=== PATIENT | male | born 1965 | race Caucasian/White ===

== ENCOUNTER 2019-07-11 19:10 | Emergency (ER) | payer OTHER, SELFPAY ==
[~2019-07-11 19:10] MED LIST: Iopamidol-370 76% 500 ML 1 ML ONE
[2019-07-11 20:16] LABS: #Eosinphils 0.2 thou/uL (0.0-0.7); #Lymphocytes 1.3 thou/uL (1.20-3.40); #Monocytes 0.5 thou/uL (0.11-0.59); #Neutrophils 4.7 thou/uL (1.40-6.50); %Basophils 0.6 % (0.0-1.0); %Eosinophils 3.4 % (0.0-10.0); %Lymphocytes 18.6 % (21.0-51.0); %Monocytes 7.6 % (0.0-10.0); %Neutrophils 69.8 % (42.0-75.0); Hemoglobin 16.1 g/dL (14.0-18.0); Mean Corpuscular HGB CONC 35.3 g/dL (32.0-36.0); Mean Corpuscular Hemoglobin 31.4 pg (27.0-31.0); Mean Corpuscular Volume 89.1 fL (78.0-98.0); Mean Platelet Volume 8.2 fL (7.4-10.4); Platelet Count 190 thou/uL (130-400); RBC Distribution Width 12.5 % (11.5-14.5); Red Blood Cell (RBC) Count 5.13 mill/uL (4.70-6.10); White Blood Cell (WBC) Count 6.7 thou/uL (4.8-10.8)
[2019-07-11 20:37] LABS: ALT (SGPT) 39 U/L (8-55); AST (SGOT) 26 U/L (5-34); Albumin 4.6 g/dL (3.5-5.0); Alkaline Phosphatase 58 U/L (40-110); Anion Gap 13 mmol/L (10-20); BUN (Urea Nitrogen) 9 mg/dL (8.4-25.7); Bilirubin, Total 0.7 mg/dL (0.2-1.2); Calc. Creatinine Clearance 0 mL/min (70-130); Calcium 9.3 mg/dL (7.8-10.44); Carbon Dioxide 28 mmol/L (22-29); Chloride 99 mmol/L (98-107); Estimated GFR-MDRD 73; Globulin 2.5 g/dL (2.4-3.5); Glucose 159 mg/dL (70-105); Lipase 7 U/L (8-78); Potassium 3.9 mmol/L (3.5-5.1); Protein, Total 7.1 g/dL (6.0-8.3); Sodium 136 mmol/L (136-145)
[2019-07-11] MEDS ORDERED: Acetaminophen 500 MG TAB ONE (20:58)
[2019-07-11] MEDS ORDERED: Ondansetron PF 4 MG/2 ML Vial ONE (20:58)
--- NOTE | 2019-07-11 21:11 | CT ---
CT ABDOMEN WITH CONTRAST CT PELVIS WITH CONTRAST: DATE: 07/11/2019 HISTORY: 53-year-old male with left lower quadrant abdominal pain COMPARISON: None TECHNIQUE: IV injection of iodinated contrast media: administered. Oral contrast media:Not administered FINDINGS: There is a fat-containing right inguinal hernia. There is a questionable smaller left-sided fat-conta ining inguinal hernia. No hernia with bowel loop. Atrophic, partially fatty replaced pancreas. No major pathology identified involving abdominal aorta, right kidney, adrenals, spleen, or urinary blad letty. Normal appendix. No small bowel dilation. No convincing evidence of colonic diverticulitis. No small bowel dilation, ascites, pneumoperitoneum, or pleural effusion. Exophytically protruding laterally from the left renal mid pole cortex, there is an approximately 1.5 x 1.5 x 1.5 cm small lesion that has lower density than the adjacent enhancing renal parenchyma, with density of 40 Hounsfield units. No hydronephrosis. IMPRESSION: 1. No acute findings. 2. Small 1.5 cm left renal mass. Possibilities include hemorrhagic renal cyst versus primary renal ne oplasm. Recommend further evaluation with multiphase CT of abdomen with and without contrast (renal mass protocol), on a nonemergent, elective basis.
[2019-07-11] MEDS ORDERED: Lisinopril 10 MG TAB ONE (21:31)
--- NOTE | 2019-07-14 11:29 | EKG ---
Test Reason : EMERGENCY EXAM Blood Pressure : / mmHG Vent. Rate : 064 BPM Atrial Rate : 064 BPM P-R Int : 158 ms QRS Dur : 084 ms QT Int : 402 ms P-R-T Axes : 015 019 032 degrees QTc Int : 414 ms Normal sinus rhythm Normal ECG Confirmed by RITIKA VELIZ ([id number]), offline editor TYREE HUFF ([id number]) on 07/14/2019 11:28:41 AM Referred By: Confirmed By:RITIKA VELIZ
== END 2019-07-11 21:45 | disposition home or self-care (01) ==
LOC: ERS 19:10
DX: S41.151A Open bite of right upper arm, initial encounter (principal); R10.32 Left lower quadrant pain; R11.0 Nausea; E11.9 Type 2 diabetes mellitus without complications; I10 Essential (primary) hypertension; E78.5 Hyperlipidemia, unspecified; Z79.899 Other long term (current) drug therapy; Z79.84 Long term (current) use of oral hypoglycemic drugs; W55.01XA Bitten by cat, initial encounter
CPT/HCPCS: 74177; 80053; 83690; 84484; 85025; 93005; 94760; 96374; J2405; Q9967

== ENCOUNTER 2020-10-13 12:45 | Emergency (ER) | payer SELFPAY ==
[2020-10-13] MEDS ORDERED: Proparacaine 0.5% Opth 15 ML BOT ONE (14:24)
[2020-10-13] MEDS ORDERED: Ketorolac Tromethamine 30 MG/ML VIAL ONE (14:25)
[2020-10-13] MEDS ORDERED: diphenhydrAMINE 50 MG/ML VIAL ONE (14:25)
[2020-10-13] MEDS ORDERED: Metoclopramide HCl 10 MG/2 ML VIAL ONE (14:25)
[2020-10-13 14:30] LABS: Bilirubin Negative (Negative); Blood, Urine Negative (Negative); Clarity Clear (Clear); Glucose, Urine (Dipstick) Normal (Negative); Ketone, Urine Negative (Negative); Leukocyte Negative Leu/uL (Negative); Nitrite Negative (Negative); Protein, Urine (Dipstick) Negative (Neg-Trace); Specific Gravity, Urine 1.004 (1.002-1.036); Urobilinogen Normal mg/dL (Less than 2); pH, Urine 6.5 (5.0-9.0)
[2020-10-13 14:40] LABS: #Eosinphils 0.1 thou/uL (0.0-0.7); #Lymphocytes 1.1 thou/uL (1.20-3.40); #Monocytes 0.5 thou/uL (0.11-0.59); #Neutrophils 4.8 thou/uL (1.40-6.50); %Basophils 0.5 % (0.0-1.0); %Eosinophils 2.2 % (0.0-10.0); %Lymphocytes 16.2 % (21.0-51.0); %Monocytes 7.7 % (0.0-10.0); %Neutrophils 73.4 % (42.0-75.0); Hemoglobin 15.4 g/dL (14.0-18.0); Mean Corpuscular HGB CONC 34.4 g/dL (32.0-36.0); Mean Corpuscular Hemoglobin 31.4 pg (27.0-31.0); Mean Corpuscular Volume 91.2 fL (78.0-98.0); Mean Platelet Volume 7.9 fL (7.4-10.4); Platelet Count 199 thou/uL (130-400); RBC Distribution Width 11.8 % (11.5-14.5); White Blood Cell (WBC) Count 6.6 thou/uL (4.8-10.8)
[2020-10-13 15:05] LABS: ALT (SGPT) 18 U/L (8-55); AST (SGOT) 16 U/L (5-34); Albumin 4.7 g/dL (3.5-5.0); Alkaline Phosphatase 47 U/L (40-110); Anion Gap 12 mmol/L (10-20); BUN (Urea Nitrogen) 10 mg/dL (8.4-25.7); Bilirubin, Total 0.7 mg/dL (0.2-1.2); CRP (Inflammatory) Less than 0.50 mg/dL (= or < 0.5); Calc. Creatinine Clearance 0 mL/min (70-130); Calcium 9.7 mg/dL (7.8-10.44); Carbon Dioxide 29 mmol/L (22-29); Chloride 103 mmol/L (98-107); Globulin 2.5 g/dL (2.4-3.5); Glucose 200 mg/dL (70-105); Magnesium 1.9 mg/dL (1.6-2.6); Potassium 3.9 mmol/L (3.5-5.1); Protein, Total 7.2 g/dL (6.0-8.3); Sodium 140 mmol/L (136-145)
== END 2020-10-13 16:51 | disposition home or self-care (01) ==
LOC: ERS 12:45
DX: I16.0 Hypertensive urgency (principal); E11.9 Type 2 diabetes mellitus without complications; E78.5 Hyperlipidemia, unspecified; Z79.84 Long term (current) use of oral hypoglycemic drugs; Z79.899 Other long term (current) drug therapy
CPT/HCPCS: 70450; 80053; 81003; 83735; 83880; 84484; 85025; 85652; 86140; 93005; 96365; 96366; 96375; J1200; J1885; J2765

== ENCOUNTER 2020-10-16 09:54 | Inpatient (IN) | payer OTHER, SELFPAY ==
[2020-10-16 10:22] LABS: #Basophils 0.1 thou/uL (0.0-0.2); #Eosinphils 0.2 thou/uL (0.0-0.7); #Lymphocytes 1.3 thou/uL (1.20-3.40); #Monocytes 0.5 thou/uL (0.11-0.59); #Neutrophils 4.5 thou/uL (1.40-6.50); %Eosinophils 2.7 % (0.0-10.0); %Lymphocytes 19.6 % (21.0-51.0); %Monocytes 6.8 % (0.0-10.0); %Neutrophils 69.9 % (42.0-75.0); Hemoglobin 16.1 g/dL (14.0-18.0); Mean Corpuscular HGB CONC 33.5 g/dL (32.0-36.0); Mean Corpuscular Hemoglobin 30.6 pg (27.0-31.0); Mean Corpuscular Volume 91.5 fL (78.0-98.0); Mean Platelet Volume 7.7 fL (7.4-10.4); Platelet Count 199 thou/uL (130-400); Red Blood Cell (RBC) Count 5.26 mill/uL (4.70-6.10); White Blood Cell (WBC) Count 6.5 thou/uL (4.8-10.8)
[2020-10-16 10:45] LABS: ALT (SGPT) 19 U/L (8-55); AST (SGOT) 16 U/L (5-34); Albumin 4.8 g/dL (3.5-5.0); Alkaline Phosphatase 51 U/L (40-110); Anion Gap 16 mmol/L (10-20); BUN (Urea Nitrogen) 8 mg/dL (8.4-25.7); Calc. Creatinine Clearance 0 mL/min (70-130); Calcium 9.7 mg/dL (7.8-10.44); Carbon Dioxide 25 mmol/L (22-29); Chloride 101 mmol/L (98-107); Globulin 2.7 g/dL (2.4-3.5); Glucose 197 mg/dL (70-105); Potassium 3.9 mmol/L (3.5-5.1); Protein, Total 7.5 g/dL (6.0-8.3); Sodium 138 mmol/L (136-145)
[2020-10-16] MEDS ORDERED: Ketorolac Tromethamine 30 MG/ML VIAL ONE (11:56)
[2020-10-16] MEDS ORDERED: Metoclopramide HCl 10 MG/2 ML VIAL ONE (11:56)
[2020-10-16] MEDS ORDERED: traMADol HCl 50 MG TAB ONE (13:41)
[2020-10-16] MEDS ORDERED: niCARdipine 20MG In NaCl 20 MG/200 ML BAG ONE ×3 (13:41→19:13)
[2020-10-16] MEDS ORDERED: Acetaminophen 325 MG TAB ONE (15:42)
[2020-10-16 16:56] LABS: SARS-CoV-2 NAA Rapid Test Not Detected (NotDetected)
[2020-10-16] MEDS ORDERED: hydrALAZINE 20 MG/ML VIAL SLOW IVP PRN (19:09)
[2020-10-16] MEDS ORDERED: Dextrose 5% in Water 1,000 ML IV PRN (19:09)
[2020-10-16] MEDS ORDERED: HumaLOG 300 UNITS/3 ML VIAL SC PRN (19:09)
[2020-10-16] MEDS ORDERED: Calcium Carbonate 500 MG ChewTAB PO PRN (19:09)
[2020-10-16] MEDS ORDERED: Ondansetron ODT 4 MG TAB PO PRN (19:09)
[2020-10-16] MEDS ORDERED: Ondansetron PF 4 MG/2 ML Vial IVP PRN (19:09)
[2020-10-16] MEDS ORDERED: Dextrose 50% Abboject 50 ML SYRINGE SLOW IVP PRN (19:09)
[2020-10-16] MEDS ORDERED: Amlodipine 10 MG TAB PO SCH (19:15)
[2020-10-16] MEDS ORDERED: Aspirin 81 mg Enteric Coated Tablet PO SCH (19:30)
[2020-10-16] MEDS ORDERED: Amlodipine 5 MG TAB ONE (20:12)
[2020-10-16] MEDS ORDERED: Aspirin Chewable 81 MG TAB ONE (20:12)
[2020-10-16 20:31] LABS: CKMB 1.2 ng/mL (0-6.6)
[2020-10-16] MEDS ORDERED: Lisinopril 10 MG TAB ONE (21:58)
[2020-10-16] MEDS ORDERED: hydrALAZINE 25 MG TAB ONE (21:58)
[2020-10-16] MEDS ORDERED: Labetalol HCl 100 MG/20 ML VIAL ONE (21:58)
[2020-10-16] MEDS ORDERED: Famotidine 20 MG TAB ONE (21:58)
[2020-10-16] MEDS: hydrALAZINE 25 MG TAB PO SCH (22:04)
[2020-10-16] MEDS: Lisinopril 20 MG TAB PO SCH (22:04)
[2020-10-16] MEDS: Famotidine 20 MG TAB PO SCH (22:04)
[2020-10-17 03:27] LABS: #Eosinphils 0.1 thou/uL (0.0-0.7); #Lymphocytes 1.7 thou/uL (1.20-3.40); #Monocytes 0.9 thou/uL (0.11-0.59); #Neutrophils 6.6 thou/uL (1.40-6.50); %Basophils 0.5 % (0.0-1.0); %Eosinophils 1.6 % (0.0-10.0); %Lymphocytes 18.6 % (21.0-51.0); %Monocytes 9.3 % (0.0-10.0); %Neutrophils 70.1 % (42.0-75.0); Hemoglobin 15.9 g/dL (14.0-18.0); Mean Corpuscular HGB CONC 34.1 g/dL (32.0-36.0); Mean Corpuscular Hemoglobin 30.9 pg (27.0-31.0); Mean Corpuscular Volume 90.6 fL (78.0-98.0); Mean Platelet Volume 7.5 fL (7.4-10.4); Platelet Count 203 thou/uL (130-400); RBC Distribution Width 11.9 % (11.5-14.5); Red Blood Cell (RBC) Count 5.15 mill/uL (4.70-6.10); White Blood Cell (WBC) Count 9.3 thou/uL (4.8-10.8)
[2020-10-17] MEDS: Labetalol HCl 100 MG/20 ML VIAL SLOW IVP PRN ×3 (03:44→16:50)
[2020-10-17 03:50] LABS: ALT (SGPT) 16 U/L (8-55); AST (SGOT) 12 U/L (5-34); Albumin 4.4 g/dL (3.5-5.0); Alkaline Phosphatase 46 U/L (40-110); Anion Gap 14 mmol/L (10-20); BUN (Urea Nitrogen) 11 mg/dL (8.4-25.7); Bilirubin, Total 0.8 mg/dL (0.2-1.2); Calc. Creatinine Clearance 123 mL/min (70-130); Calcium 9.3 mg/dL (7.8-10.44); Carbon Dioxide 26 mmol/L (22-29); Chloride 102 mmol/L (98-107); Globulin 2.7 g/dL (2.4-3.5); Glucose 139 mg/dL (70-105); Magnesium 1.9 mg/dL (1.6-2.6); Phosphorus 3.4 mg/dL (2.3-4.7); Potassium 3.4 mmol/L (3.5-5.1); Protein, Total 7.1 g/dL (6.0-8.3); Sodium 139 mmol/L (136-145)
[2020-10-17] MEDS: niCARdipine 50 MG in Sodium Chloride 0.9% 250 ML 230 ML IVPB SCH ×2 (05:22→09:57)
[2020-10-17] MEDS: HumaLOG 300 UNITS/3 ML VIAL SC PRN ×3 (06:10→17:01)
[2020-10-17] MEDS: Aspirin 81 mg Enteric Coated Tablet PO SCH (07:55)
[2020-10-17] MEDS: hydrALAZINE 25 MG TAB PO SCH ×3 (07:55→20:19)
[2020-10-17] MEDS: Amlodipine 10 MG TAB PO SCH (07:55)
[2020-10-17] MEDS: Lisinopril 20 MG TAB PO SCH ×2 (07:56→20:19)
[2020-10-17] MEDS: Famotidine 20 MG TAB PO SCH ×2 (07:56→20:19)
[2020-10-17] MEDS ORDERED: Iopamidol-370 76% 500 ML 1 ML ONE (08:49)
[2020-10-17] MEDS: Acetaminophen 500 MG TAB PO PRN (16:54)
[2020-10-18] MEDS: Labetalol HCl 100 MG/20 ML VIAL SLOW IVP PRN (05:01)
[2020-10-18] MEDS: Acetaminophen 500 MG TAB PO PRN (05:05)
[2020-10-18 05:34] VITALS: BMI 30.9
[2020-10-18] MEDS: HumaLOG 300 UNITS/3 ML VIAL SC PRN ×2 (07:22→11:50)
[2020-10-18 07:42] VITALS: TEMP 97.7
[2020-10-18] MEDS: Lisinopril 20 MG TAB PO SCH (08:40)
[2020-10-18] MEDS: Famotidine 20 MG TAB PO SCH (08:40)
[2020-10-18] MEDS: Amlodipine 10 MG TAB PO SCH (08:40)
[2020-10-18] MEDS: hydrALAZINE 25 MG TAB PO SCH (08:40)
[2020-10-18] MEDS: Aspirin 81 mg Enteric Coated Tablet PO SCH (08:41)
[2020-10-18 08:43] VITALS: BP 153/98
== END 2020-10-18 15:52 | disposition home or self-care (01) | DRG 305 ==
LOC: ERS 09:54 → CCU 14:26
PROVIDERS: ADMIT Family Medicine; ATTEND Internal Medicine
DX: I16.0 Hypertensive urgency (principal); E78.5 Hyperlipidemia, unspecified; Z20.822 Contact with and (suspected) exposure to COVID-19; N28.89 Other specified disorders of kidney and ureter; N18.30 Chronic kidney disease, stage 3 unspecified; I12.9 Hypertensive chronic kidney disease with stage 1 through stage 4 chronic kidney disease, or unspecified chronic kidney disease; E11.22 Type 2 diabetes mellitus with diabetic chronic kidney disease; Z79.82 Long term (current) use of aspirin; Z79.899 Other long term (current) drug therapy
CPT/HCPCS: 0240U; 36415; 36416; 70450; 71045; 74178; 80053; 82553; 83735; 83880; 84100; 84443; 84484; 85025; 93005; 93306; J1815; J1885; J2765; J7050; Q9967

== ENCOUNTER 2020-10-19 17:20 | Observation (INO) | payer OTHER, SELFPAY ==
[2020-10-19] MEDS ORDERED: Labetalol HCl 100 MG/20 ML VIAL ONE (17:52)
[2020-10-19 17:53] LABS: #Eosinphils 0.3 thou/uL (0.0-0.7); #Lymphocytes 2.4 thou/uL (1.20-3.40); #Neutrophils 5.6 thou/uL (1.40-6.50); %Basophils 0.3 % (0.0-1.0); %Eosinophils 3.2 % (0.0-10.0); %Lymphocytes 25.3 % (21.0-51.0); %Monocytes 10.6 % (0.0-10.0); %Neutrophils 60.6 % (42.0-75.0); Hemoglobin 16.9 g/dL (14.0-18.0); Mean Corpuscular HGB CONC 36.1 g/dL (32.0-36.0); Mean Corpuscular Hemoglobin 32.5 pg (27.0-31.0); Mean Platelet Volume 7.7 fL (7.4-10.4); Platelet Count 236 thou/uL (130-400); RBC Distribution Width 11.9 % (11.5-14.5); Red Blood Cell (RBC) Count 5.21 mill/uL (4.70-6.10); White Blood Cell (WBC) Count 9.3 thou/uL (4.8-10.8)
[2020-10-19 18:17] LABS: ALT (SGPT) 16 U/L (8-55); AST (SGOT) 21 U/L (5-34); Albumin 4.7 g/dL (3.5-5.0); Alkaline Phosphatase 56 U/L (40-110); Anion Gap 19 mmol/L (10-20); BUN (Urea Nitrogen) 17 mg/dL (8.4-25.7); Bilirubin, Total 0.6 mg/dL (0.2-1.2); Calc. Creatinine Clearance 0 mL/min (70-130); Calcium 10.4 mg/dL (7.8-10.44); Carbon Dioxide 24 mmol/L (22-29); Chloride 101 mmol/L (98-107); Globulin 3.3 g/dL (2.4-3.5); Glucose 191 mg/dL (70-105); Magnesium 1.8 mg/dL (1.6-2.6); Potassium 4.4 mmol/L (3.5-5.1); Sodium 140 mmol/L (136-145)
[2020-10-19 18:36] LABS: CKMB 2.5 ng/mL (0-6.6)
[2020-10-19] MEDS ORDERED: Acetaminophen 325 MG TAB PO PRN (19:49)
[2020-10-19] MEDS ORDERED: Ondansetron PF 4 MG/2 ML Vial IVP PRN (19:49)
[2020-10-19] MEDS ORDERED: Zolpidem Tartrate 5 MG TAB PO PRN (19:49)
[2020-10-19] MEDS ORDERED: HYDROcodone/Acetaminophen 7.5/325 mg Tablet PO PRN (19:49)
[2020-10-19] MEDS ORDERED: hydrALAZINE 20 MG/ML VIAL SLOW IVP PRN (19:51)
[2020-10-19] MEDS ORDERED: Amlodipine 10 MG TAB PO SCH (20:00)
[2020-10-19 20:05] VITALS: BMI 31.8
[2020-10-19] MEDS ORDERED: metFORMIN 500 MG TAB PO SCH (20:45)
[2020-10-19] MEDS: Atorvastatin Calcium 10 MG TAB PO SCH (20:46)
[2020-10-19] MEDS ORDERED: hydrALAZINE 25 MG TAB PO SCH (21:00)
[2020-10-19] MEDS ORDERED: Labetalol 100 MG TAB PO SCH (21:00)
[2020-10-19 22:09] LABS: Troponin I 0.038 ng/mL (< 0.028)
[2020-10-19] MEDS ORDERED: Sodium Chloride 0.9% 500 ML IVPB SCH (22:45)
[2020-10-20 01:22] LABS: Troponin I 0.018 ng/mL (< 0.028)
[2020-10-20] MEDS: HumaLOG 300 UNITS/3 ML VIAL SC PRN ×2 (06:25→12:23)
[2020-10-20 06:30] LABS: #Basophils 0.1 thou/uL (0.0-0.2); #Eosinphils 0.1 thou/uL (0.0-0.7); #Lymphocytes 1.4 thou/uL (1.20-3.40); #Monocytes 0.8 thou/uL (0.11-0.59); #Neutrophils 5.5 thou/uL (1.40-6.50); %Basophils 0.6 % (0.0-1.0); %Eosinophils 1.8 % (0.0-10.0); %Lymphocytes 17.9 % (21.0-51.0); %Monocytes 9.5 % (0.0-10.0); %Neutrophils 70.2 % (42.0-75.0); Hemoglobin 15.3 g/dL (14.0-18.0); Mean Corpuscular HGB CONC 34.6 g/dL (32.0-36.0); Mean Corpuscular Hemoglobin 31.7 pg (27.0-31.0); Mean Corpuscular Volume 91.6 fL (78.0-98.0); Mean Platelet Volume 8.3 fL (7.4-10.4); Platelet Count 213 thou/uL (130-400); RBC Distribution Width 11.9 % (11.5-14.5); Red Blood Cell (RBC) Count 4.83 mill/uL (4.70-6.10); White Blood Cell (WBC) Count 7.9 thou/uL (4.8-10.8)
[2020-10-20 06:55] LABS: Albumin 4.2 g/dL (3.5-5.0); Anion Gap 16 mmol/L (10-20); BUN (Urea Nitrogen) 17 mg/dL (8.4-25.7); Calc. Creatinine Clearance 120 mL/min (70-130); Calcium 9.5 mg/dL (7.8-10.44); Carbon Dioxide 24 mmol/L (22-29); Chloride 101 mmol/L (98-107); Glucose 279 mg/dL (70-105); Phosphorus 3.7 mg/dL (2.3-4.7); Potassium 3.8 mmol/L (3.5-5.1); Sodium 137 mmol/L (136-145)
[2020-10-20] MEDS ORDERED: Sodium Chloride 0.65% Nasal 44 ML BOT EA NARE PRN (07:45)
[2020-10-20] MEDS ORDERED: Loratadine 10 MG TAB PO PRN (07:45)
[2020-10-20] MEDS ORDERED: Cepastat Lozenges 1 LOZ PO PRN (07:45)
[2020-10-20] MEDS ORDERED: Calcium Carbonate 500 MG ChewTAB PO PRN (07:45)
[2020-10-20] MEDS ORDERED: Bisacodyl 5 MG TAB PO PRN (07:45)
[2020-10-20] MEDS ORDERED: HYDROcodone/Acetaminophen 5/325 mg Tablet PO PRN (07:45)
[2020-10-20] MEDS ORDERED: Dextrose 5% in Water 1,000 ML IV PRN (07:45)
[2020-10-20] MEDS ORDERED: GUAIFENESIN SF SOLN 200 MG/10 ML UDCUP PO PRN (07:45)
[2020-10-20] MEDS ORDERED: Loperamide HCl 2 MG CAP PO PRN (07:45)
[2020-10-20] MEDS ORDERED: Benzonatate 100 MG CAP PO PRN (07:45)
[2020-10-20] MEDS ORDERED: Senokot S 8.6-50 MG TAB PO PRN (07:45)
[2020-10-20] MEDS: glyBURIDE 5 MG TAB PO SCH (09:14)
[2020-10-20] MEDS: metFORMIN 500 MG TAB PO SCH ×3 (09:15→17:26)
[2020-10-20] MEDS: Amlodipine 10 MG TAB PO SCH (09:15)
[2020-10-20] MEDS: Aspirin 81 mg Enteric Coated Tablet PO SCH (09:15)
[2020-10-20] MEDS: Lisinopril 20 MG TAB PO SCH (09:20)
[2020-10-20] MEDS: Hydrochlorothiazide 25 MG TAB PO SCH (09:21)
[2020-10-20] MEDS: Cholecalciferol 1,000 UNITS (25 MCG) TAB PO SCH (09:22)
[2020-10-20] MEDS: Enoxaparin Sodium 40 MG/0.4 ML SYRINGE SC SCH (09:23)
[2020-10-20] MEDS ORDERED: Carvedilol 6.25 MG TAB PO SCH (17:00)
[2020-10-20] MEDS: Atorvastatin Calcium 10 MG TAB PO SCH (20:29)
[2020-10-21] MEDS: HumaLOG 300 UNITS/3 ML VIAL SC PRN ×2 (06:01→12:33)
[2020-10-21] MEDS: glyBURIDE 5 MG TAB PO SCH (08:54)
[2020-10-21] MEDS: metFORMIN 500 MG TAB PO SCH ×2 (08:54→12:32)
[2020-10-21] MEDS: Cholecalciferol 1,000 UNITS (25 MCG) TAB PO SCH (08:55)
[2020-10-21] MEDS: Aspirin 81 mg Enteric Coated Tablet PO SCH (08:55)
[2020-10-21] MEDS: Amlodipine 10 MG TAB PO SCH (08:55)
[2020-10-21] MEDS: Enoxaparin Sodium 40 MG/0.4 ML SYRINGE SC SCH (08:55)
[2020-10-21] MEDS: Lisinopril 20 MG TAB PO SCH (08:56)
[2020-10-21] MEDS: Hydrochlorothiazide 25 MG TAB PO SCH (08:56)
[2020-10-21] MEDS ORDERED: Labetalol 100 MG TAB PO SCH (09:00)
[2020-10-21 11:37] LABS: 24 Hr Creatinine 1495.76 mg/24 hr (950-2490); Creatinine, Urine 46.38 mg/dL (63-166)
[2020-10-21 12:31] VITALS: TEMP 98.1
[2020-10-21 15:37] VITALS: BP 132/82
[2020-10-25 00:12] LABS: Metanephrine,Plasma 15.2 pg/mL (0.0-88.0)
== END 2020-10-21 15:49 | disposition home or self-care (01) ==
LOC: ERS 17:20 → 2SW 18:46
PROVIDERS: ADMIT Family Medicine; ATTEND Internal Medicine
DX: I16.0 Hypertensive urgency (principal); I10 Essential (primary) hypertension; E11.9 Type 2 diabetes mellitus without complications; N28.89 Other specified disorders of kidney and ureter; Z79.84 Long term (current) use of oral hypoglycemic drugs; Z79.82 Long term (current) use of aspirin; Z79.899 Other long term (current) drug therapy
CPT/HCPCS: 36415; 36416; 70450; 80053; 80069; 82088; 82553; 82570; 83497; 83735; 83835; 84244; 84443; 84484; 85025; 90471; 90732; 93005; 96372; 96374; 96375; 96376; G0009; G0378; J1650; J1815; J2405; J7030

== ENCOUNTER 2023-09-15 10:05 | Emergency (ER) | payer OTHER ==
[2023-09-15 12:49] LABS: #Basophils Less than 0.03 10x3/uL (0.0-0.2); %Basophils 0.1 % (0.0-1.0); %Eosinophils 2.9 % (0.0-10.0); %Lymphocytes 15.1 % (21.0-51.0); %Neutrophils 70.5 % (42.0-75.0); Hematocrit 43.7 % (42.0-52.0); Hemoglobin 14.9 g/dL (14.0-18.0); Mean Corpuscular HGB CONC 34.1 g/dL (32.0-36.0); Mean Corpuscular Volume 90.9 fL (78.0-98.0); Mean Platelet Volume 9.8 fL (7.4-10.4); Platelet Count 177 10x3/uL (130-400); RBC Distribution Width 13.6 % (11.5-14.5); Red Blood Cell (RBC) Count 4.81 mill/uL (4.70-6.10)
[2023-09-15 13:03] LABS: ALT (SGPT) 14 U/L (8-55); AST (SGOT) 14 U/L (5-34); Albumin 3.8 g/dL (3.5-5.0); Alkaline Phosphatase 48 U/L (40-110); Anion Gap 14 mmol/L (10-20); BUN (Urea Nitrogen) 11 mg/dL (8.4-25.7); Calc. Creatinine Clearance 0 mL/min (70-130); Calcium 9.4 mg/dL (7.8-10.44); Carbon Dioxide 24 mmol/L (22-29); Chloride 105 mmol/L (98-107); Estimated GFR 73; Globulin 2.7 g/dL (2.4-3.5); Glucose 85 mg/dL (70-105); Lipase 5 U/L (8-78); Protein, Total 6.5 g/dL (6.0-8.3); Sodium 139 mmol/L (136-145)
[2023-09-15] MEDS ORDERED: Lidocaine 2% Viscous 10 mL, Alum & Magn 30 mL SSW SCH (14:00)
== END 2023-09-15 13:56 | disposition home or self-care (01) ==
LOC: ERS 10:05
DX: K29.00 Acute gastritis without bleeding (principal)
CPT/HCPCS: 36415; 80053; 83690; 85025; 99283